=== PATIENT | female | born 1955 | race Caucasian/White ===

== ENCOUNTER 2018-11-03 11:15 | Inpatient (IN) | payer MEDICARE, OTHER, SELFPAY ==
[2018-10-15 10:49] VITALS: BMI 33.3
[2018-11-03] VITALS (11 sets, daily range): BP systolic 94–126; BP diastolic 59–95; PULSE 76–108; RESP 11–24; TEMP 36.2–36.8; O2SAT 92–98; BMI 33.3
--- NOTE | 2018-11-03 | PATH_ITS ---
[facility] Accession Number: [id number] . 01 Material submitted: . arm - LEFT DELTOID BURAS MASS . 01 Diagnosis: Soft Tissue, Left Deltoid Bursa Mass, Excision: Benign myxoid spindle cell lesion, consistent with a juxta-articular myxoma. See comment. MRV/11/10/2018 . 01 Comment: The differential diagnosis also includes an intramuscular myxoma which can have a similar morphologic appearance; however, given the association with bursa, this lesion is best characterized as a juxta-articular myxoma. . As part of ongoing fuel quality tech, selected slides from this case have also been reviewed by Dr. Rere Packer, who concurs with the given interpretation. . Findings were discussed with triage nurse, ChidiNay on 11/07/[address] Monteiro. . 01 Electronically signed: . Barbara Monteiro MD, Pathologist NPI- [id number] . 01 Gross description: . Received in formalin, labeled left deltoid bursa mass, are multiple pieces of reyes-white and pale yellow cystic fatty and focally firm tissue (6.0 x 5.2 x 1.8 cm in aggregate) covered in clear colorless tacky fluid. Assistant Family Teacher tissue submitted in cassettes A1 and A2. Additional sales representative uniforms tissue submitted in cassettes A3-A6. ([id number]) /MRV . 01 Microscopic: . Sections show a lobulated, predominantly hypocellular spindle/stellate cell proliferation. The lesional cells are uniform with small ovoid to slightly elongated nuclei and inconspicuous nucleoli, and are embedded in a myxoid stroma. Areas of increased cellularity are noted. Overt cytologic atypia, mitosis and necrosis are not identified. Prominent curvilinear vessels are not noted. Immunostains are performed to further evaluate this lesion and show focal variable positivity with CD34 immunostain. The cells are negative for S100, ruling out a nerve sheath myxoma or a neurofibroma. Smooth muscle actin and desmin immunostains are negative, ruling out a smooth muscle proliferation. An RHONA immunostain is also negative. Controls stain appropriately. . * This test was developed and its performance characteristics determined by [employer]. It has not been cleared or approved by the U.S. Food and Drug Administration. The FDA has determined that such clearance or approval is not necessary. This test is used for clinical purposes. It should not be regarded as investigational or for research. . 01 Pathologist provided ICD-10: D21.12 . 01 CPT . 663735, C91510, M72898 Performed at: 01 [facility] [address] [place] [address] [address], [place], [place] [id number] MD Jeferson Parish MD Phone: [phone]
--- NOTE | 2018-11-03 08:10 | DI.RAD.S_ITS ---
PROCEDURE: XR SHOULDER LT 1V INDICATIONS: post operative total left shoulder TECHNIQUE: Single frontal view of the left shoulder were acquired. COMPARISON: None. FINDINGS: Bones: No fractures or dislocations. There is expected postoperative alignment after left total shoulder arthroplasty with surgical drain overlying the operative bed No suspicious bony lesions. Visualized ribs appear intact. Soft tissues: No suspicious soft tissue calcifications. IMPRESSION: Normal alignment after left total shoulder arthroplasty. Dictated by: Jluis Kincaid M.D. on 11/03/2018 at 15:48 Approved by: Jluis Kincaid M.D. on 11/03/2018 at 15:48
[2018-11-03] MEDS: ACETAMINOPHEN 325 MG TABLET 975 MG PO ×2 (11:47→20:54)
[2018-11-03] MEDS: CELECOXIB 200 MG CAPSULE PO (11:48)
[2018-11-03] MEDS: PREGABALIN 75 MG CAPSULE PO (11:48)
[2018-11-03] MEDS: LACTATED RINGERS 1,000 ML 42 ML IV (11:53)
--- NOTE | 2018-11-03 12:49 | PM.PREOP ---
Pre-operative Note Interval Note History & Physical reviewed/Exam performed by Physician: Yes Changes to H&P: No
[2018-11-03] MEDS: MIDAZOLAM 2 MG/2 ML VIAL IV (13:10)
--- NOTE | 2018-11-03 13:23 | SUR.PREOP ---
Block start time [1310] . Monitoring initiated and maintained throughout procedure. Oxygen and medications given per anesthesiologist instructions. Patient remained stable throughout procedure, no adverse reactions noted. Block end time [1314 ].
[2018-11-03] MEDS: CLINDAMYCIN 900 MG/50 ML PIGGYBACK 50 MG IV (13:25)
--- NOTE | 2018-11-03 13:57 | SUR.OPER ---
Beach chair with Schlein shoulder positioner. Lower body on padded OR bed. Head in foam padded head cradle, secured with straps. Non-operative arm secured <90 degrees abduction. Pillow under knees. Safety belt at thigh. Cloth tape over blanket over lower legs.
[2018-11-03] MEDS: BUPIVACAINE 0.5% W/ EPI (PF) VIAL 30 ML INJ (14:09)
[2018-11-03] MEDS: TRANEXAMIC ACID 1,000 MG VIAL 1000 MG INJ (14:11)
--- NOTE | 2018-11-03 15:11 | PM.OP.1 ---
Operative Date/Time/Diagnoses Date of procedure: 11/03/18 Time of procedure: 15:00 Pre-op diagnosis: 1. Left shoulder avascular necrosis 2. Failed left rotator cuff repair Post-op diagnosis: same Procedure & Clinicians Procedure: Left reverse total shoulder replacement Same procedure as scheduled: Yes Indications: The patient is a 63-year-old woman who previously underwent a rotator cuff repair elsewhere. She went on to have continued and worsening left shoulder pain and a repeat MRI revealed both failure of the rotator cuff tear and avascular necrosis of the humeral head. She has agreed to reverse total shoulder replacement after discussion the risks benefits and alternatives. Risks discussed included but were not limited to: Failure to improve pain or function, instability, permanent weakness, stiffness, nerve damage, infection, deep venous thrombosis, pulmonary embolism, stroke, myocardial infarction, permanent paralysis and . Surgeon: Erik Mcdaniel Associate Chief Nurse: Annabel Chavez Click Yes if Unassisted: No Anesthesia Type: General, Peripheral nerve block and Local Operative Notes Findings: Obvious avascular necrosis of the humeral head with crescent sign. There was essentially no functional rotator cuff including subscapularis supraspinatus and infraspinatus. There was a very large cystic mass in the subdeltoid bursa, likely a foreign body reaction to a prior rotator cuff repair. This was excised and sent to pathology for confirmation of diagnosis. Closure Type: primary Specimen(s): other (Subdeltoid cystic mass ) Prosthetic devices, grafts, tissues, transplants, or devices: Prosthetics used in this case were manufactured by the [employer] and included an RSP reverse total shoulder system. There was a standard 30 mm glenoid base plate, there were 4 locking bolts measuring 18, 30, 14 and 14 mm. It was a 32 mm -4 glenoid head with retaining screw, on the humeral side there was a 10 mm small shell stem and a small socket 32 mm neutral E plus polyethylene humeral insert. Applied: drain(s) and implant(s) Estimated Blood Loss (mL): 250 Blood products transfused: none Procedure in detail: The patient was seen in the preoperative area where they identified the left shoulder as the operative site and this was marked with my initials. They received preoperative antibiotics and underwent the induction of an interscalene block. They were taken to the operating room and placed on the operating room table in a supine position with the underwent the induction of a general anesthetic. There were then repositioned in the ?beach chair? position using a dedicated positioner. All pressure points were well padded. The knees were slightly bent to prevent tension on the sciatic nerves. The right arm was prepared from the fingertips to the base of the neck with ChloraPrep in the usual fashion and draped through sterile drapes. An approximately 15 cm incision was created starting at the clavicle just above the coracoid and going to the deltoid insertion. The deltopectoral interval was used to access the shoulder taking the vein to the medial side. The vein was protected throughout the case however was lacerated by a retractor part way through the procedure and was cauterized. Upon entering the subscapularis bursa a large cystic mass was encountered. This did not appear to be infectious or neoplastic and was therefore removed and sent to pathology for confirmation of diagnosis before proceeding with the procedure. The upper 1 cm of the pectoralis major was released. The biceps groove was identified and used as a guide to releasing the remaining anterior scar tissue. The biceps itself was ruptured. The subscapularis was absent. The shoulder was dislocated and a proximal humeral osteotomy performed using an extramedullary guide. A proximal humeral protector was then placed. Retractors were placed access the glenoid. The soft tissues were removed circumferentially around the glenoid. The guide was used to drill the guide hole in the center of the inferior glenoid. The tap was placed and used as a guide for the reamer. The tap was then removed and the glenoid base plate inserted. The peripheral locking screws were then placed through the appropriate guide. A trial glenoid head was applied. We then turned our attention to the humerus. The proximal humeral protector was removed. Cylindrical reamers were used to size the canal. Broaching was then performed beginning with a small broach and working up until a line to line fit with the reamer was obtained. The guide for the proximal metaphyseal reamer was then applied and the metaphysis was reamed appropriately. The trial metaphyseal portion of the body was then applied to the broach. Trial reductions were performed and the size of the glenoid head and the cup were optimized. Stability was checked in maximal internal and external rotation and range of motion was checked to allow access to the top of the head, internal rotation to an excess of 50? in the ?scarecrow position? and the ability to reach the groin. The appropriate final prosthetic components were then opened. The glenoid head was impacted into position and checked for rotational and axial stability before placing the set screw. The humeral prosthetic was then impacted into position. The humeral cup was placed. The joint was relocated and irrigated. The subscapularis was repaired to the previously placed sutures. A deep drain was placed. The deltopectoral interval was reapproximated with 0 Vicryl. Subcutaneous layer was closed with interrupted 3-0 Vicryl and skin with a running 3 0 V lock suture. Subcutaneous tissues were then infiltrated with 0.5% Marcaine for postoperative pain control. An Aquacel Ag dressing was applied and the patient's arm was placed in a sling. The patient was then transferred to the recovery room in good condition having tolerated the procedure well. Complications: none Condition: stable Disposition: PACU Plan for aftercare: The patient will be maintained on pendulum exercises for the next 6 weeks. They will be hospitalized overnight for pain control. DVT prophylaxis will be with aspirin and sequential compression devices.
--- NOTE | 2018-11-03 15:46 | SUR.PHASEI ---
Report called to Fernanda
--- NOTE | 2018-11-03 16:01 | SUR.PHASEI ---
Pt tranferred to the floor. VS stable. Report to Fernanda. shoulder DRSG CDI. HV patent. Sling in place. Belongings bag and glasses with patient.
[2018-11-03] MEDS: LACTATED RINGERS 1,000 ML 125 ML IV (17:58)
--- NOTE | 2018-11-03 18:26 | PC.NURSE ---
Addendum entered by Fernanda Ware R.N. 11/03/18 22:43: 1950 - SBA to bathroom, steady gait. Pt denies pain, reports numbness and tingling to LUE, able to flex, but not extend fingers. Fingers warm, palpable radial pulse. Original Note: 1600 - Pt to room from PACU. Alert and oriented. Aquacel drsg to left shoulder CDI. Sling on. Ice pack in place. Pt denies pain, decreased sensation to LUE. Able to move fingers only slightly. Palpable radial pulse. Hand and finger warm to touch with good capillary refill. Room air, 97%. Oriented to room and routine. Call light in reach.
[2018-11-03] MEDS: ASPIRIN EC 81 MG TABLET PO (20:54)
[2018-11-03] MEDS: DOCUSATE 100 MG CAPSULE PO (20:54)
[2018-11-04] MEDS: LACTATED RINGERS 1,000 ML 125 ML IV (00:26)
[2018-11-04 01:30] VITALS: BP 103/63; PULSE 90; RESP 17; TEMP 36.5; O2SAT 95
[2018-11-04 05:35] VITALS: BP 124/75; PULSE 71; RESP 16; TEMP 36.6; O2SAT 97
[2018-11-04 05:56] LABS: Hematocrit 36.9 % (36-46); Hemoglobin 12.3 g/dL (12.0-16.0); Mean Corpuscular HGB Conc 33.4 % (30-36); Platelet Count 206 X10^3/uL (150-400); Red Blood Cell Count 4.39 X10^6/uL (4.0-5.2); Red Cell Distribution Width 13.5 % (11.6-14.8); White Blood Cell Count 13.3 X10^3/uL (4.5-11.0)
[2018-11-04 07:35] VITALS: BP 126/70; PULSE 84; RESP 16; TEMP 36.9; O2SAT 97
--- NOTE | 2018-11-04 07:48 | P.DS_ITS ---
History of Present Illness Date Patient Seen: 11/04/18 Time Patient Seen: 07:43 Chief complaint: [id number] Narrative: The history and physical exam are contained in the chart in a previously completed note. Please refer to that note for this information. Discharge Providers Date of admission: 11/03/18 11:15 Discharge Date: 11/04/18 Primary care physician: Lotus Farah PA-C Consults: 11/03/18 16:41 Consult to Discharge Planning Routine Comment: Consult to Physical Therapy Evaluate & Treat Comment: Pendulum exercises only Physician Instructions: Evaluate and Treat Discharge provider: Erik Mcdaniel MD Summary Discharge Diagnosis: 1. Avascular necrosis, left shoulder 2. Failed rotator cuff repair left shoulder 3. Cystic mass in subdeltoid bursa 4. Mild post hemorrhagic anemia Hospital Course: The patient was admitted to the hospital and taken directly to the operating room on November 03, 2018. She underwent a left reverse total shoulder replacement without complications. On postoperative day 1 her pain was well controlled and she was ready for discharge. Status at Discharge Cognitive/behavioral status at discharge: oriented Functional status at discharge: independent ambulation Overall status at discharge: patient is progressing back to baseline Time Spent with Patient Less than 30 minutes Exam Vital Signs (past 8 hours): - 11/04/18 01:30 11/04/18 05:35 Temperature 97.7 F 97.9 F Pulse Rate 90 71 Respiratory Rate 17 16 Blood Pressure 103/63 124/75 Pulse Oximetry 95 97 Oxygen Delivery Method Room Air Oxygen Flow Rate 2 Narrative Exam Narrative: Left shoulder wound is dressed with no drainage on the bandage. Light touch is intact in the axillary, radial, ulnar, musculocutaneous and median nerve distribution. She can extend her thumb, abduct her thumb, abduct her fingers. At this point she is still unable to fire her biceps and deltoid. Objective Labs Result Diagrams: 11/04/18 05:12 Labs: Laboratory Results - last 24 hr 11/04/18 05:12 WBC 13.3 H RBC 4.39 Hgb 12.3 Hct 36.9 MCV 84.0 MCH 28.0 MCHC 33.4 RDW 13.5 Plt Count 206 Discharge Plan Discharge Plan Patient Disposition: Home Discharge Med Rec/Prescriptions Prescriptions: New aspirin 81 mg Tablet,Delayed Release (Dr/Ec) 81 mg PO BID 42 Days Qty: 84 RF: 0 oxycodone 5 mg Tablet 5 mg PO Q3HR PRN (Reason: Pain, Moderate (4-6)) Qty: 40 RF: 0 hydroxyzine pamoate 25 mg Capsule 25 mg PO Q4HR PRN (Reason: Spasms) Qty: 40 RF: 0 Continued loratadine-pseudoephedrine [AllerClear D-24hr] 10-240 mg Tablet Extended Release 24 Hr 1 tab PO DAILY RF: 0 triamcinolone acetonide [Nasacort] 55 mcg Aerosol,[place] 2 spray Intranasal DIRECTED RF: 0 Follow up/Referrals: Lotus Farah PA-C [Primary Care Provider] - Erik Mcdaniel MD [Physician] - 2 Weeks Provider Discharge Instructions Diet: Diet as Tolerated and Regular Activity: You may remove the sling for hygiene and to do pendulum exercises. Otherwise keep the sling in place. Cold/Heat Therapy: Apply ice to the surgical site for 15 minutes of every hour as needed for pain. Skin/Wound/Dressing Care Report to your healthcare provider any signs of infection, such as:: chills, fever, night sweats, increased pain, unusual drainage and unusual redness Dressing: Leave the dressing in place until your follow-up. You may shower with the dressing in place. If the central strip of the dressing becomes saturated with either water or blood please call the office to have it changed. Visit Report/Discharge Packet Instructions: DI for Shoulder Replacement Stand Alone Forms: Surgery Discharge Discharge Data Primary Care Provider: Lotus Farah Attending Provider: Erik Mcdaniel Admit Date/Time: 11/03/18 11:15 Quality VTE Deep Vein Thrombosis/Pulmonary Embolism Present on Admission: No
--- NOTE | 2018-11-04 09:20 | PT.IIE ---
Current Diagnoses Idiopathic aseptic necrosis of left humerus (11/03/18) Other specified postprocedural states (11/03/18) Surgery Performed Operation Date: 11/03/18 12:45 Actual Procedures p Total Shoulder Arthroplasty - Reverse(Left) - Erik Mcdaniel MD Surgical History (Last Updated 10/15/18 @ 11:06 by Erum Washington, RN) Hx of tubal ligation (Acute) S/P left rotator cuff repair (Acute ~2014) Medical History (Last Updated 10/15/18 @ 11:06 by Erum Washington RN) Osteoarthritis (Acute) Seasonal allergies (Acute) Physical Therapy Inpatient Evaluation/Re-Eval M1 PT/OT-IP Prior Functional Status Start: 11/04/18 09:20 Freq: NEEDED Status: Active Protocol: Document 11/04/18 09:20 DLM (Rec: 11/04/18 09:34 DLM [email or web address]) Medical Review Prior Functional Status Medical History Reviewed Yes Diet/Fluid Consistency Regular Communication WNL Mobility and Gait Independent, no device, community distances Activities of Daily Living and IADL's Independent, left handed Prior Functional Level (Other details) active Social History Household Members spouse Living Arrangements House Number of Floors (Floors) One Floor Number of Stairs To Enter/Railing? 5 steps with rail Employment Status Retired Additional Social History Comment she has a power recliner she slept in after her rotator cuff repair M2 PT-IP Current Condition Start: 11/04/18 09:20 Freq: NEEDED Status: Active Protocol: Document 11/04/18 09:20 DLM (Rec: 11/04/18 09:34 DLM [email or web address]) Physical Therapy Current Condition Current Condition Evaluation Date 11/04/18 Treatment Diagnosis left reverse total shoulder Onset Date 11/03/18 Precautions Shoulder Precautions Sling Pendulums Other Precautions no use of left shoulder at this time M3 PT-IP Subjective Start: 11/04/18 09:20 Freq: NEEDED Status: Active Protocol: Document 11/04/18 09:20 DLM (Rec: 11/04/18 09:34 DLM [email or web address]) Subjective Physical Therapy Visit Type Type Initial Evaluation Visit Start Time 08:50 Visit Stop Time 09:20 Total Visit Minutes 30 Number of PEANUT SHAKER Visits 0 Physical Therapy Visit Comments Patient Comments She feels ready to go home today. She does not have any soreness in her shoulder at this time. She can feel her fingers and arm Patient Goals go home with Spouse to assist Therapy Pain Assessment Pain Present Pain Present Denied Pain M4 PT-IP Mobility and Gait Start: 11/04/18 09:20 Freq: NEEDED Status: Active Protocol: Document 11/04/18 09:20 DLM (Rec: 11/04/18 09:34 DL [email or web address]) PT-Bed Mobility Assessment Sit to Supine Sit to Supine Independent Head of Bed Elevated PT-Transfer Assessment Sit to and From Stand Sit to and from Stand Independent Equipment Transfer Assistive Device None Transfers Transfer Destination Chair Transfer Technique Stand Step Pivot Transfer Ability Level of Assist Independent Gait Assessment Gait Gait Assistance Required: Independent Distance (Feet) 300 Assistive Devices Assistive Device None Gait Deviations General Gait Pattern Within Normal Limits Stair Climbing Assessment Evaluation Level of Assist On Stairs Independent Devices Stair Climbing Assistive Devices Right Railing Technique/Endurance Stair Climbing Direction Ascend and Descend Stair Climbing Technique Step Over Step Number of Steps Climbed 3 Query Text: Stair Climbing Set # Repetitions (reps) 1 PT-Balance Assessment Sitting Balance and Reactions Static Sitting Balance Ability Normal Dynamic Sitting Balance Ability Normal Standing Balance and Reactions Static Standing Balance Ability Normal Dynamic Standing Balance Ability Normal Device Used none M5 PT-IP Objective Assessments Start: 11/04/18 09:20 Freq: NEEDED Status: Active Protocol: Document 11/04/18 09:20 DLM (Rec: 11/04/18 09:34 DL [email or web address]) Orientation Orientation/Cognition Level of Alertness Alert Orientation Name Age Birthday Month Date Year Day of Week Place Situation Language Function Ability No Deficits Noted Safety Awareness Understands Safety Issues Memory Description No Deficits Noted Gross Range of Motion Upper Extremity ROM Assessment Left Impaired Impairments post-op restrictions left shoulder, pendulums only elbow/wrist/hand WFL Lower Extremity ROM Assessment Within Functional Limits Strength Upper Extremity Strength Assessment Left Impaired Shoulder not tested due to post-op precautions Lower Extremity Strength Assessment Within Functional Limits Coordination Assessment Gross Coordination Gross Coordination WNL Sensation Assessment Sensation Gross Sensation Left UE Impaired Light Touch Impaired Comments Sensation Comments post-op block left shoulder Muscle Tone Muscle Tone WNL Yes M6 PT-IP Treatment Start: 11/04/18 09:20 Freq: NEEDED Status: Active Protocol: Document 11/04/18 09:20 DLM (Rec: 11/04/18 09:34 DLM [email or web address]) Physical Therapy Treatment Exercises Exercises Shoulder Pendulums Elbow Flexion/Extension Wrist ROM Hand ROM Education Education Provided Precautions Safety Other Treatments Other Treatment Performed provided written handout for pendulums, reviewed proper use of sling and to ice at home M7 PT-IP Assessment and Plan Start: 11/04/18 09:20 Freq: NEEDED Status: Active Protocol: Document 11/04/18 09:20 DLM (Rec: 11/04/18 09:34 DLM [email or web address]) PT Summary Assessment and Plan Potential Rehabilitation Potential Excellent Status of Condition at Evaluation Evolving Summary Impairments Pain ROM Strength Activity Tolerance Assessment Summary She tolerated ambulating in the [facility]. She is compliant with wearing left shoulder sling. Instructed her in post-op precautions and pendulums. She appears safe to discharge home with her Spouse when cleared medically. She reports her Spouse will be able to assist her as needed at home. She plans for her Spouse to assist her with ADL's. Frequency of Treatment Frequency Of Treatment Discharge Recommendations To Nursing Amount of Assist Needed Independent Discharge Recommendations PT Discharge Recommendations Home with Assistance
--- NOTE | 2018-11-04 11:36 | CM.DANOTE ---
Discharge Planning/Care Management DCP: assessment: case received, EMR reviewed and pre-op assessment/below is noted. Case discussed in Team Rounds this morning. Pt is a 63 year old female who admitted yesterday for a planned shoulder surgery. Surgeon: Dr. Mcdaniel. Payer: Medicare and [facility] Noted pt up and mobilizing in the halls with sling on and PT at [facility]. PT did see pt for first time today, cleared her for the home setting with her spouse Tulio to provide prn assist (and as outlined in her pre-op plan) Went to room to check in with pt; she had already left for home. Advanced directive, confirm from FAMILY Start: 11/03/18 16:47 Freq: Q24H Status: Discharge Protocol: Document 11/03/18 18:31 JJY (Rec: 11/03/18 18:31 JJY [id number]) Advance Directive, confirm on record Time 18:31 Person contacted Tulio Copy received No CM Discharge Assessment Start: 11/04/18 11:35 Freq: Status: Discharge Protocol: Document 11/04/18 11:35 ITV (Rec: 11/04/18 11:35 ITV [id number]) Discharge Planning Assessment Advance Directives? Yes Advance Directives on File No History Provided By Medical Record Prior Living Arrangements House Household Members spouse Pre-Anesthesia Assessment Start: 10/15/18 10:49 Freq: Status: Discharge Protocol: Document 10/15/18 10:49 CAB (Rec: 10/15/18 11:16 CAB [id number]) Pre-Anesthesia Assessment Patient Information Reviewed Via Phone Assessment Assessment Completed With Patient Diagnostic Results BMP/CMP CBC EKG Comment Outside Labs/EKG scanned to record Primary Care Provider Lotus Farah Seen Specialist in Last 12 Months Yes Specialist Seen Orthopedist Comment PCP visit 10/16/18 scanned to record Primary Language Colombian Quarantine Inspector Required No Height 157.48 cm Weight 82.554 kg Body Mass Index (BMI) 33.3 Hearing Ability Normal Visual Assist Glasses Dentition Type Teeth, Natural Present Barriers to Learning None Other Aids No Hx Anesthesia Reactions No Hx Family Anesthesia Reaction No Hx Malignant Hyperthermia No Hx Blood Transfusions No Anesthesia Review Requested No 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 No Does patient have [place]/SOB No Hx Sleep Apnea No Currently Taking a Beta Ross No Can You Climb a Flight of Stairs Without Yes SOB Hx Chest Pain No Hx SOB No Hx Syncope or Dizziness No Anti-Coagulant Therapy No Has a Financial Officer No Cardiac Testing No Hx Pacemaker/ICD No Pacemaker Rep Required? No Cardiac Clearance Received Not Applicable Diet Type At Home Regular dysphagia No Urinary Catheter Present No Hx Urinary Self Catheterization No Diabetes No Patient No Lactating No Hx Drug Resistant Organism No Presence of External or Internal Medical No Devices Have you traveled outside the [facility] in the last 30 days? Marital Status Lives With spouse Prior Living Arrangements House Number of Floors (Floors) One Floor Support System Family Friend(s) Spouse Patient Discharge Plan Description Return Home Comment Pt advised same day - overnight length of stay per surgeon's office Feels Safe in Current Environment Yes Been Physically Hurt or Threatened By a No Person in Current Environment Do you have thoughts of harming yourself None or others? Are you currently considering suicide? No Do you have a plan to hurt yourself or No Plan others? Do You Have Any Spiritual Beliefs That No May Affect Your HC Choices? Do You Have Any Cultural Practices That No May Affect Your HC Choices? Who Can We Speak to About Patient's Care Family, friends Identifying Code for Release of Patient Declines to issue Information Health Care Proxy/Next of Kin Tulio () Health Care Proxy Emergency Contact Name Tulio () Emergency Contact Advance Directives? Yes Advance Directives on File No Requested Patient Bring Advanced Yes Directives DOS Power of Acquisition Analyst Yes Power of Acquisition Analyst Name Tulio () Power of Acquisition Analyst PAC Instructions Durable medical equipment Medications to take/avoid Nasal antibiotic No ETOH/petroleum product on skin DOS NPO Post-op transportation Pre-surgical wash Sturdy shoes/comfortable clothes Do not bring valuables and remove jewelry
== END 2018-11-04 10:38 | disposition home or self-care (01) | DRG 483 ==
PROVIDERS: Admitting Provider Orthopaedic Surgery; PCP Physician Assistant; Visit Provider Orthopaedic Surgery
PROC: 0RRK00Z Replacement of Left Shoulder Joint with Reverse Ball and Socket Synthetic Substitute, Open Approach (ICD-10-PCS; CPT 23472; principal; 2018-11-03 12:45)
DX: M87.022 Idiopathic aseptic necrosis of left humerus (principal); M71.312 Other bursal cyst, left shoulder
CPT/HCPCS: 36415; 64450; 73020; 85027; 88307; 88341; 88342; 97162; C1776; J1100; J2250; J2405; J3010

== ENCOUNTER 2020-05-21 16:13 | Emergency (ER) | payer MEDICARE, OTHER, SELFPAY ==
[2018-11-03 16:42] VITALS: BMI 33.3
[2020-05-21 16:16] VITALS: BP 147/79; PULSE 94; RESP 16; TEMP 36.1; O2SAT 99; BMI 31.7
--- NOTE | 2020-05-21 16:22 | DI.RAD.S_ITS ---
PROCEDURE: XR KNEE LT 3V INDICATIONS: popping sensation and pain TECHNIQUE: 3 views of the knee were acquired. COMPARISON: None. FINDINGS: Bones: No fractures or dislocations. No suspicious bony lesions. There is an enthesophyte seen along the superior aspect of the patella on the lateral image. Soft tissues: No joint effusion. Presumed meniscal calcification can be seen along the medial femoral tibial joint space. IMPRESSION: Unremarkable knee plain films for age. If there is strong clinical suspicion for internal derangement of the knee, please consider a dedicated MRI for further evaluation (assuming that there is no contraindication to MRI). Dictated by: Missael Silva M.D. on 05/21/2020 at 15:51 Approved by: Missael Silva M.D. on 05/21/2020 at 15:55
--- NOTE | 2020-05-21 18:17 | ED_ITS ---
HPI - Extremity Injury (Lower) General Chief Complaint: Extremity Injury, Lower Stated Complaint: something in back of left knee snapped Time Seen by Provider: 05/21/20 17:59 Source: patient Mode of arrival: Ambulatory Limitations: no limitations History of Present Illness HPI Narrative: Patient is a 65-year-old female who presents with left knee pain. She said about 7-10 days ago she was in bed she turned over and felt a twinge. She has had a twinge since then. Last night she was going upstairs when she heard a pop. She says since then she has been unable to bear weight she denies numbness or tingling. She does have crutches that she has intermittently been using today. She has not taken anything for pain because she says that does not help. MD complaint: knee injury Onset (ago): day(s) (1) Related Data Home Medications Medication Instructions Recorded Confirmed loratadine-pseudoephedrine 1 tab PO DAILY 11/03/18 11/03/18 [AllerClear D-24hr] triamcinolone acetonide [Nasacort] 2 spray INTRANASAL DIRECTED 11/03/18 11/03/18 Previous Rx's Medication Instructions Recorded hydroxyzine pamoate 25 mg PO Q4HR PRN #40 cap 11/04/18 oxycodone 5 mg PO Q3HR PRN #40 tab 11/04/18 Allergies Allergy/AdvReac Type Severity Reaction Status Date / Time Penicillins Allergy Severe Rash, My Verified 11/03/18 12:09 throat closes Review of Systems Review of Systems Narrative: GENERAL: Denies chills,fever HEENT: Denies throat pain RESPIRATORY: Denies dyspnea, cough, wheezing CARDIOVASCULAR: Denies chest pain, palpitations GASTROINTESTINAL: Denies nausea, vomiting MUSCULOSKELETAL: See HPI SKIN: No rash, no laceration, no pruritus NEUROLOGIC: Denies weakness, dizziness, headache, numbness 8 point review of systems is negative except for those stated above and HPI Patient History Medical History Osteoarthritis Seasonal allergies Surgical History Hx of tubal ligation S/P left rotator cuff repair (~2013) Social History household members: spouse Smoking Status: Never smoker alcohol intake: former Smoking Status: Never smoker alcohol intake frequency: holidays/special occasions only Substance Use Type: does not use Exam Initial Vital Signs Initial Vital Signs: Vital Signs Temperature 97.0 F L 05/21/20 16:16 Pulse Rate 94 H 05/21/20 16:16 Respiratory Rate 16 05/21/20 16:16 Blood Pressure 147/79 H 05/21/20 16:16 Pulse Oximetry 99 05/21/20 16:16 GENERAL: Well-appearing, well-nourished and in no acute distress. CARDIOVASCULAR: peripheral pulses in tact, cap refill <2 sec RESPIRATORY: No respiratory distress, speaks in full sentences without difficulty EXTREMITIES: Normal range of motion, no clubbing or edema. Neurovascularly intact Left knee minimal swelling stable, negative anterior and posterior drawer. NEUROLOGICAL: Cranial nerves II through XII grossly intact. Normal gait and speech. SKIN: Warm, dry, no petechiae, no rashes or lesions. Course Orders Ordered: ED Orders 05/21/20 16:22 XR knee LT 3V Stat Vital Signs Vital signs: Vital Signs - 8 hr 05/21/20 16:16 05/21/20 18:51 Temperature 97.0 F L Pulse Rate 94 H 90 Respiratory Rate 16 18 Blood Pressure 147/79 H 165/82 H Pulse Oximetry 99 96 MDM - Extremity Injury (Lower) Imaging Data Extremity x-ray #1: Radiologist's Impression: PROCEDURE: XR KNEE LT 3V INDICATIONS: popping sensation and pain TECHNIQUE: 3 views of the knee were acquired. COMPARISON: None. FINDINGS: Bones: No fractures or dislocations. No suspicious bony lesions. There is an enthesophyte seen along the superior aspect of the patella on the lateral image. Soft tissues: No joint effusion. Presumed meniscal calcification can be seen along the medial femoral tibial joint space. IMPRESSION: Unremarkable knee plain films for age. If there is strong clinical suspicion for internal derangement of the knee, please consider a dedicated MRI for further evaluation (assuming that there is no contraindication to MRI). Dictated by: Missael Silva M.D. on 05/21/2020 at 15:51 MDM Narrative Medical decision making narrative: Patient states she has crutches at home she is offered a new brace here however she would like to get her own. Recommend conservative treatment at this time. She may require an outpatient MRI. Discharge Plan Departure Patient Disposition: Home Clinical Impression: Left knee sprain Qualifiers: Encounter type: initial encounter Involved ligament of knee: other ligament Qualified Code(s): S83.8X2A - Sprain of other specified parts of left knee, initial encounter Instructions: DI for Knee Sprain Activity Restrictions/Additional Instructions: *You have been diagnosed with left knee sprain *What to do: Increase activity as tolerated. Please wear brace while active during the day. He may find that you need a different 1 from [employer] or a different store. You will likely require an outpatient MRI, however at this time does not indicated in the emergency department. Elevate and ice *Continue to take medications as directed Ibuprofen 600 mg every 6-8 hours if needed for [id number] pain *Follow up with your primary care provider in 2-3 days You may try call Orthopedics on Saturday to schedule an appointment *Return to ER if you should have inability to walk, swelling, increased pain or any new, worsening or concerning symptoms Prescriptions: No Action loratadine-pseudoephedrine [AllerClear D-24hr] 10-240 mg Tablet Extended Release 24 Hr 1 tab PO DAILY RF: 0 triamcinolone acetonide [Nasacort] 55 mcg Aerosol,[place] 2 spray Intranasal DIRECTED RF: 0 oxycodone 5 mg Tablet 5 mg PO Q3HR PRN (Reason: Pain, Moderate (4-6)) Qty: 40 RF: 0 hydroxyzine pamoate 25 mg Capsule 25 mg PO Q4HR PRN (Reason: Spasms) Qty: 40 RF: 0 Referrals: [facility] [Provider Group] Lotus Farah PA-C [Primary Care Provider] -
[2020-05-21 18:51] VITALS: BP 165/82; PULSE 90; RESP 18; O2SAT 96
== END 2020-05-21 18:51 | disposition home or self-care (01) ==
PROVIDERS: Emergency Provider Emergency Medicine; PCP Physician Assistant
DX: S83.8X2A Sprain of other specified parts of left knee, initial encounter (principal)
CPT/HCPCS: 73562; 99283

== ENCOUNTER → 2024-12-14 08:44 | Outpatient (CLI) | payer MEDICARE, OTHER, SELFPAY ==
[2018-11-03 16:42] VITALS: BMI 33.3
--- NOTE | 2024-12-14 08:58 | DI.RAD.S_ITS ---
PROCEDURE: XR FOOT RT MIN 3V INDICATIONS: RT FOOT PAIN TECHNIQUE: 3 views of the foot were acquired. COMPARISON: [facility] [place] [facility], CR, XR FOOT 3+ VIEWS RIGHT, 02/22/2021, 9:47. 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 Chronic appearing erosion is seen at the medial 1st metatarsal head. Differential includes crystal arthropathy such as gout or inflammatory arthropathy. Calcaneal enthesopathy. No suspicious soft tissue calcifications otherwise. If there is high concern for further derangement, consider MRI evaluation. Dictated by: Fede Mares M.D. on 12/14/2024 at 11:59 Approved by: Fede Mares M.D. on 12/14/2024 at 12:01
--- NOTE | 2024-12-14 09:37 | EKG_ITS ---
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
[2024-12-14 10:03] LABS: Add Manual Diff / Slide Review NO; Hematocrit 44.3 % (36-46); Hemoglobin 14.9 g/dL (12.0-16.0); Lymphocytes Absolute Auto 1200 /uL (1100-4500); Mean Corpuscular HGB Conc 33.6 % (30-36); Mean Corpuscular Hemoglobin 29.8 PG (26-34); Mean Corpuscular Volume 88.7 fL (80-100); Platelet Count 209 X10^3/uL (150-400)
[2024-12-14 10:12] LABS: INR 1.0 (0.9-1.3); Prothrombin Time 11.1 SECONDS (9.4-12.5)
[2024-12-14 10:23] LABS: Blood Urea Nitrogen 17 mg/dL (7-17); Calcium 9.6 mg/dL (8.4-10.2); Carbon Dioxide 26 mmol/L (22-32); Chloride 103 mmol/L (98-107); Estimated Glomerular Filt Rate > 60 mL/min (>60); Glucose 102 mg/dL (70-99); HEMOLYSIS < 15 (0-50); Potassium 4.5 mmol/L (3.4-5.1); Sodium 138 mmol/L (137-145)
== END ==
PROVIDERS: PCP Podiatrist Foot & Ankle Surgery; Referring Provider Podiatrist Foot & Ankle Surgery; Visit Provider Podiatrist Foot & Ankle Surgery
DX: Z01.810 Encounter for preprocedural cardiovascular examination (principal); M21.611 Bunion of right foot; M79.671 Pain in right foot; M79.672 Pain in left foot; M77.31 Calcaneal spur, right foot; M19.071 Primary osteoarthritis, right ankle and foot; M21.071 Valgus deformity, not elsewhere classified, right ankle
CPT/HCPCS: 36415; 73630; 80048; 85025; 85610; 93005

== ENCOUNTER 2025-01-14 07:51 | Day surgery (SDC) | payer MEDICARE, OTHER, SELFPAY ==
[2018-11-03 16:42] VITALS: BMI 33.3
[2025-01-08 12:18] VITALS: BMI 29.5
[2025-01-14] VITALS (8 sets, daily range): BP systolic 135–153; BP diastolic 72–94; PULSE 82–105; RESP 15–20; TEMP 36.1–36.6; O2SAT 95–98; BMI 29.5
--- NOTE | 2025-01-14 | PATH_ITS ---
[facility] Accession Number: [id number] No. of containers..01 Tissue . 01 Material submitted: . foot - RIGHT FOOT, 1ST METATARSAL CYST . 01 Diagnosis: RIGHT FOOT, FIRST METATARSAL CYST, EXCISION: Scant fragment of fibroadipose tissue. No cyst is identified despite additional deeper sections. No malignancy is identified in these sections. [facility] 01/21/2025 1700 Local . 01 Electronically signed: . Alirio Francois MD, Dermatopathologist NPI- [id number] . 01 Gross description: . RIGHT FOOT, 1ST METATARSAL CYST: Received in formalin is 1 fragment of arenas soft tissue measuring 0.2 x 0.1 x 0.1 cm. Tissue is inked. Specimen is submitted in its entirety in 1 cassette. /SERENA 01/18/20258 Local . 01 Pathologist provided ICD-10: M79.671 . 01 CPT . 951049 Performed at: [address] [facility] [address], [place], [place] [id number] MD Jeferson Parish MD Phone: [phone]
--- NOTE | 2025-01-14 05:40 | PM.PREOP ---
Pre-operative Note Interval Note History & Physical reviewed/Exam performed by Physician: Yes Changes to H&P: No H&P completed within 30 days and has changed as indicated here:: Patient seen and evaluated. Surgical plan: right foot bunion correction with single or double osteotomy. Risks and benefits of the procedure discussed with all questions answered to patient's satisfaction. Reviewed potential complications that may include but not limited to the following: DVT, failure to resolve all symptoms, infection, nerve injury, bleeding, recurrence, or wound. Reviewed surgical technique and general aftercare protocols. All questions answered to patient's satisfaction with no guarantees made. Patient verbalized understanding and agreed with surgical plan. RTC for post-op.
[2025-01-14] MEDS: LIDOCAINE 1% 20 ML INJ (08:12)
[2025-01-14] MEDS: LACTATED RINGERS 1,000 ML 42 ML IV (08:43)
[2025-01-14] MEDS: ACETAMINOPHEN 325 MG TABLET 975 MG PO (08:44)
--- NOTE | 2025-01-14 09:18 | PM.PREOP ---
Pre-operative Note Interval Note History & Physical reviewed/Exam performed by Physician: Yes Changes to H&P: No
--- NOTE | 2025-01-14 09:32 | PM.HP.1 ---
History of Present Illness History of Present Illness Chief complaint: bunion surgery Narrative: 70 year old with worsening bunion pain. She would like to proceed with surgical intervention. Pain affects activities of daily livings. Patient denies n/v/f/c/sob/cp. 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) S/P left rotator cuff repair (~2013) Hx of tubal ligation Social History household members: spouse Smoking Status: Never smoker alcohol intake: former Meds Home Medications and Allergies Home Medications ?Medication ?Instructions ?Recorded ?Confirmed ?Type loratadine-pseudoephedrine ER 10 1 tab PO DAILY 11/03/18 11/03/18 History mg-240 mg tablet,extended [id number] (AllerClear D-24hr) triamcinolone acetonide 55 mcg 2 spray intranasal DIRECTED 11/03/18 11/03/18 History nasal spray aerosol (Nasacort) hydroxyzine pamoate 25 mg capsule 25 mg PO Q4HR PRN Spasms #40 caps 11/04/18 Rx oxycodone 5 mg tablet 5 mg PO Q3HR PRN Pain, Moderate 11/04/18 Rx (4-6) #40 tabs ondansetron 4 mg disintegrating 4 mg PO Q8H PRN nausea and 01/14/25 Rx tablet vomiting #20 tabs oxycodone-acetaminophen 5 mg-325 1 tab PO Q6H PRN pain #30 tabs 01/14/25 Rx mg tablet (Percocet) Allergies Allergy/AdvReac Type Severity Reaction Status Date / Time Penicillins Allergy Severe Rash, My Verified 01/14/25 08:15 throat closes Exam Vital Signs (past 8 hours): - 01/14/25 08:33 Temperature 97.8 F Pulse Rate 82 Respiratory Rate 16 Blood Pressure 146/94 H Pulse Oximetry 98 Oxygen Delivery Method Room Air Oxygen Delivery Method Room Air Extrem Other: Right foot: medial deviation of first metatarsal and lateral deviation of hallux. Assessment & Plan Assessment & Plan narrative: 1. Right foot bunion. Right foot bunion correction with single or double osteotomies. Risks and benefits of surgery reviewed with all questions answered to satisfaction and no guarantees made. Time-Based Coding :: [TOTAL MINUTES] spent with patient and on the chart (including review of chart, obtaining history, exam, reviewing outside data, placing orders, documenting exam and treatment plan, and counseling patient) on [DATE].
--- NOTE | 2025-01-14 10:16 | SUR.OPER ---
Supine on padded OR bed, head on pillow, arms secured on padded arm boards at <90 degrees abduction, legs uncrossed, safety belt at waist, tape over blanket over lower left leg, right leg draped free with gel bump under right thigh, blankets supporting raised lower right lower leg.
--- NOTE | 2025-02-04 19:03 | P.OP_ITS ---
Operative Date/Time/Diagnoses Date of procedure: 01/14/25 Time of procedure: 09:30 Pre-op diagnosis: 1. Right foot bunion Post-op diagnosis: same Procedure & Clinicians Procedure: 1. Right foot bunion correction with double osteotomy (Slick and Parag) Same procedure(s) as scheduled: Yes Indications: Right foot pain Surgeon: Alex Vazquez Click Yes if Unassisted: Yes Anesthesia Type: Sedation Operative Notes Findings: Consistent with diagnosis Closure Type: primary Applied: implant(s) Estimated Blood Loss (mL): 10 Tourniquet time (min): 90 Procedure in detail: Patient was identified and transferred onto operating table from [facility] in supine position. General anesthesia was administered, followed by local injection with 1% lidocaine plain. A tourniquet was applied to left ankle over well-padded surface. Right foot was then prepped and draped in the usual sterile fashion, followed by official timeout with surgical team all in agreement. Attention was directed to the bunion deformity on the right foot. A dorsal medial incision was created over the first metatarsophalangeal joint using a # 15 scalpel. The incision was then deepened, and care was taken to protect neurovascular structures. Dissection was deepened to the joint. The periosteum and capsule were then reflected off of the first metatarsal. There was noted to be a prominent and degenerative changes to and around medial eminence. Decision was made to perform lateral release with transaction of associated structures. A sagittal was then used to create a long dorsal arm for the head osteotomy. The capital fragment was then translocated laterally until correction of the inte rmetatarsal angle was noted. Following manufacture technique, two 2.4 mm headless and partially-threaded screws were inserted over cannulated K-wires. Adequate fixation was noted at the osteotomy site, with bone allograft to enhance healing. Attention was then directed to the proximal phalanx of the hallux. The capsular periosteum was reflected off of the base of the proximal phalanx. A sagittal was then used to create a closing medial base wedge, which was fixated with a 2.4 mm screw. Finally, a Z tendon lengthening was performed for the extensor hallucis longus. Procedure sites were irrigated with copious saline, then deep structures were reapproximated and closed in layers using 2-0 vicryl, 3-0 vicryl, and 3-0 nylon. Tourniquet was released, and adequate capillary fill time was noted to all toes. Right foot was then cleaned and dried. Iodine soaked Adaptic was applied to incision lines, and they were covered with bulky sterile dressings. Patient tolerated procedure without complication and was transferred to post- anesthesia care unit with all vital signs stable. Complications: none Post-operative Condition: stable Disposition: same day surgery Plan for aftercare: NWB to surgical limb. Elevate above heart. Ice behind knee. Take medication as instructed. Follow-up as scheduled.
== END 2025-01-14 13:38 | disposition home or self-care (01) ==
PROVIDERS: PCP Podiatrist Foot & Ankle Surgery; Referring Provider Podiatrist Foot & Ankle Surgery; Visit Provider Podiatrist Foot & Ankle Surgery
PROC: 0QBN0ZZ Excision of Right Metatarsal, Open Approach (ICD-10-PCS; CPT 28292; principal; 2025-01-14 09:30)
DX: M21.611 Bunion of right foot (principal); M21.41 Flat foot [pes planus] (acquired), right foot
CPT/HCPCS: 28299; C1713; J0666; J0690; J1100; J1885; J2405; J2704; J3010

== ENCOUNTER → 2025-01-29 09:40 | Outpatient (CLI) | payer MEDICARE, OTHER, SELFPAY ==
[2018-11-03 16:42] VITALS: BMI 33.3
--- NOTE | 2025-01-29 09:43 | DI.RAD.S_ITS ---
PROCEDURE: XR FOOT RT MIN 3V INDICATIONS: post op bunyon surgery TECHNIQUE: 3 views of the foot were acquired. COMPARISON: [facility], CR, XR FOOT RT MIN 3V, 12/14/2024, 8:57. FINDINGS: Bones: Postsurgical changes status post interval bunionectomy with hardware in satisfactory position and no evidence of complication. No fractures or dislocations. No suspicious bony lesions. Retrocalcaneal enthesopathy. Soft tissues: No tibiotalar joint effusion. Moderate dorsal soft tissue swelling. Achilles tendon appears normal. IMPRESSION: Expected postsurgical changes status post bunionectomy. Dictated by: Gregory Herman M.D. on 02/01/2025 at 6:27 Approved by: Gregory Herman M.D. on 02/01/2025 at 6:28
== END ==
LOC: RAD 09:41
PROVIDERS: PCP Podiatrist Foot & Ankle Surgery; Referring Provider Podiatrist Foot & Ankle Surgery; Visit Provider Podiatrist Foot & Ankle Surgery
DX: Z47.89 Encounter for other orthopedic aftercare (principal)
CPT/HCPCS: 73630